=== PATIENT | female | born 1980 | race Caucasian/White ===

== ENCOUNTER 2022-05-13 07:27 | Outpatient (REF) | payer BC, SELFPAY | END 2022-05-13 07:28 | disposition home or self-care (01) | LOC: HO.HOSX 07:27 | PROVIDERS: Visit Provider Physician Assistant | DX: Z13.89 Encounter for screening for other disorder (principal) ==

== ENCOUNTER 2022-05-19 12:24 | Outpatient (REF) | payer BC, SELFPAY ==
--- NOTE | ~2022-05-19 | XR_ITS ---
EXAMINATION: XR wrist LT w scaphoid CLINICAL INFORMATION: Reason for Exam M25.532 - Pain in left wrist COMPARISON: None. TECHNIQUE: 4 views left wrist FINDINGS: No fracture or dislocation. Joint spaces are maintained. Scapholunate interval is preserved. Pronator fat pad is intact. No osteophytes or erosions. No chondrocalcinosis. XR/XR wrist LT w scaphoid IMPRESSION: No acute osseous injury.
== END 2022-05-19 12:25 | disposition home or self-care (01) ==
LOC: HO.HOSX 12:24
PROVIDERS: Visit Provider Physician Assistant
DX: M25.532 Pain in left wrist (principal)
CPT/HCPCS: 73110

== ENCOUNTER 2023-05-29 08:01 | Outpatient (AMB) | payer BC, SELFPAY ==
--- NOTE | 2023-05-29 08:02 | AM.OFFWIN_ITS ---
Intake Vital Signs 05/29/23 08:08 BP 112/78 Blood Pressure Location Rt brachial Position Sitting Pulse 100 Pulse Source Pulse Oximeter Temp 98.4 F Temp Source Temporal Artery Scan Pulse Oximetry (%) 97 Oxygen Delivery Method Room Air Intake Visit Reasons: EP Throat, ears [phone] Intake Note: patient here for ear pain, congestion, sore throat for about a week. Patient Tobacco Use Status: Never used Tobacco Allergies No Known Allergies Allergy (Unverified 05/29/23 08:03) Do you need a note to return to daycare/school/sports/work: No HPI HPI Comments History of Present Illness Details This is a 42-year-old female who is otherwise healthy who presents to the office today for sick visit. Patient reports symptoms of left ear pain, sinus pain/pressure/congestion, rhinorrhea with yellow green discharge, and sore throat. She denies any fevers or chills. She denies any chest pain or shortness of breath. She denies any known sick contacts. [facility] Social History (Updated 05/19/22 @ 12:37 by JOELLEN Crawford) Alcohol intake: current Alcohol intake frequency: holidays/special occasions only Patient Tobacco Use Status: Never used Tobacco Current occupational status: employed Current occupation: Teacher, left handed Review of Systems Const All systems reviewed & are unremarkable except as noted in HPI and below Reports as per HPI, Denies chills and Denies fever(s) Eyes Reports no additional complaints ENT Reports nasal congestion, Reports nasal discharge, Reports odynophagia and Reports sore throat Card Reports as per HPI and Reports no additional complaints Resp Reports as per HPI, Reports no additional complaints and Reports cough (dry) GI Reports no additional complaints, Reports change in bowel habits and Reports eleanor nophagia Reports no additional complaints Musc Reports no additional complaints Skin/Breast Reports system reviewed and no additional complaints, except as documented Neuro Reports no additional complaints Psych Reports no additional complaints Endo Reports no additional complaints Timbo/Lymph Reports no additional complaints Aller/Immun Reports no additional complaints Physical Exam Vital Signs: Last Vital Signs Temp 98.4 F 05/29/23 08:08 Pulse 100 05/29/23 08:08 BP 112/78 05/29/23 08:08 Pulse Ox 97 05/29/23 08:08 Oxygen Delivery Method Room Air 05/29/23 08:08 Const General: cooperative, healthy appearing and no acute distress Orientation/consciousness: patient oriented x3 HEENT Head: Yes normal to inspection Ears: TM abnormal bulging and erythematous General nose exam: Normal external nose present Face and sinus: Yes sinuses nontender Throat: Yes posterior oropharynx abnormal (erythema, no exudates) Neck Lymphatic: no lymphadenopathy noted Resp Effort & Inspection: normal respiratory effort Auscultation: clear to auscultation bilaterally Cardio Rate: regular rate Rhythm: regular rhythm Heart sounds: no gallops, no murmurs and no rubs Skin General skin exam: no rashes or lesions noted Neuro General: patient oriented x3 Cranial nerves: Yes CN's II-XII intact bilaterally Results AMB Rapid Strep AMB Rapid Strep Negative Last Edit by Nirmala Cisneros CMA on 05/29/23 08:15 Assessment & Plan Assessment & Plan (1) Acute rhinosinusitis: Code(s): J01.90 - Acute sinusitis, unspecified (2) Otitis media: Code(s): H66.90 - Otitis media, unspecified, unspecified ear Plan This is a 42-year-old female presenting with signs symptoms consistent acute rhinosinusitis and acute otitis media left ear. Recommended symptomatic management including rest, increased fluids, advil/tylenol for pain/fever, and over the counter throat lozenges/decongestants. Prescription sent for a Z-Rd. Patient advised to follow up here or go to the emergency room for worsening/persistent symptoms. Patient verbalizes her understanding and she is agreeable with the plan. Orders: Orders AMB Rapid Strep Screen Today Z13.9 - Encounter for screening, unspecified Medications: New azithromycin For 250 mg dose pack: take 500 mg today (day 1), then 250 mg for 4 days (days 2-5) PO 6 tabs 0RF Coding Level of Care Code Est Pt Level 3 (63920) Diagnoses Acute rhinosinusitis J01.90 Otitis media H66.90
[2023-05-29 08:08] VITALS: BP 112/78; PULSE 100; TEMP 36.9; O2SAT 97
== END 2023-05-29 08:21 | disposition home or self-care (01) ==
PROVIDERS: PCP Nurse Practitioner Family; Visit Provider Physician Assistant Medical
DX: J01.90 Acute sinusitis, unspecified (principal); H66.90 Otitis media, unspecified, unspecified ear; Z13.9 Encounter for screening, unspecified
CPT/HCPCS: 87880; 99213

== ENCOUNTER 2023-07-27 14:27 | Outpatient (AMB) | payer BC, SELFPAY ==
--- NOTE | 2023-07-27 14:33 | MHC.PC.OV ---
Vital Signs 07/27/23 14:34 Height 5 ft 6 in Weight 220 lb 2 oz BMI 35.5 BP 118/72 Blood Pressure Location Rt brachial Position Sitting Pulse 77 Pulse Source Pulse Oximeter Pulse Oximetry (%) 100 Oxygen Delivery Method Room Air Intake Visit Reasons: Re establish care-Requesting physical Allergies No Known Allergies Allergy (Unverified 07/27/23 14:50) Medication List - Last Reconciled 07/27/23 by OPHELIA Martínez No Known Home Meds Tobacco use date assessed: 07/27/23 Dental Screening Dental Screen Date: 07/27/23 Did you have a dental visit in the last 12 months?: Yes Did you have a dental problem in the last 6 months where you did not have access to dental care?: No Was dental information given to patient?: Patient has dentist HPI Re establish care-Requesting physical HPI Details Pt is here for a PE (re-establish care). Will order labs. Pt does not have a roll tester, will refer. Due for mammo, will order. Pt is interested in trying medication for weight loss. has tried aerobic activity and diet, which did not work. Will send wegovy 0.25mg. [facility] Social History Housing: House Alcohol intake: current Alcohol intake frequency: holidays/special occasions only Patient Tobacco Use Status: Never used Tobacco e-Cigarette/Vaping Use: Never Used Second Hand Smoke Exposure: No service: No Current occupational status: employed Current occupation: Teacher, left handed Current occupational exposures/hazards: No Cognitive needs: No Hearing needs: No Vision needs: No Questionnaire PHQ-9 Over the last 2 weeks, how often have you been bothered by any of the following problems? 1. Little interest or pleasure in doing things: not at all 2. Feeling down, depressed, or hopeless: not at all 3. Trouble falling or staying asleep, or sleeping too much: not at all 4. Feeling tired or having little energy: not at all 5. Poor appetite or overeating: several days 6. Feeling bad about yourself - or that you are a failure or have let yourself or your family down: not at all 7. Trouble concentrating on things, such as reading the newspaper or watching television: several days 8. Moving or speaking so slowly that other people could have noticed. Or the opposite - being so fidgety or restless that you have been moving around a lot more than usual: not at all 9. Thoughts that you would be better off or of hurting yourself in some way: not at all Total score: 2 Depression Screening Interpretation: Negative 33875 - PHQ-9 Billing: Yes Source: Developed by Drs. Bennie Bar, Mitzi Romero, Artis Howell and colleagues, with an educational glo from [employer]. Thrive Questionnaire Date Thrive assessed: 07/27/23 I am a: Patient What is your living situation today?: I have a steady place to live Within the past 12 months, did the food you bought not last and you didn't have the money to get more?: Never true Within the past 12 months, did you worry whether your food would run out before you got money to buy more?: Never true Do you have trouble paying for medicines?: No Do you have trouble getting transportation to medical appointments?: No Do you have trouble paying your heating and electricity bill?: No Do you have trouble taking care of your child, family member or friend?: No Do you have trouble with day-to-day activities such as bathing, preparing meals, shopping, managing finances, etc.?: No Are you currently unemployed and looking for a job?: No Are you interested in more education?: No AUDIT C Alcohol Use Questionnaire (AUDIT-C) 1. How often do you have a drink containing alcohol?: 2-4 times a month 2. How many drinks containing alcohol do you have on a typical day when you are drinking?: 1 or 2 3. How often do you have six or more drinks on one occasion?: Less than monthly Total Score: 3 ANGIE-7 AMB Questionnaire ANGIE-7 Date ANGIE - 7 assessed: 07/27/23 Feeling nervous, anxious, or on edge: 0 = Not at all Not being able to stop or control worryin = Not at all Worrying too much about different things: 0 = Not at all Trouble relaxin = Not at all Being so restless that it is hard to sit still: 0 = Not at all Becoming easily annoyed or irritable: 0 = Not at all Feeling afraid as if something awful might happen: 0 = Not at all Total ANGIE-7 score (0-4 normal; 5-9 mild; 10-14 moderate; 15-21 severe): 0 Source: Developed by Drs. Bennie Bar, Mitzi Romero, Artis Howell and colleagues, with an educational glo from [employer]. Review of Systems Const Denies chills and Denies fever(s) Eyes Denies blurry vision ENT Denies vertigo, Denies dizziness and Denies sore throat Card Denies chest pain at rest, Denies chest pain with activity, Denies diaphoresis, Denies dyspnea and Denies dyspnea on exertion Resp Denies cough, Denies dyspnea, Denies dyspnea on exertion and Denies wheezing GI Denies abdominal pain, Denies melena, Denies hematochezia, Denies constipation, Denies diarrhea and Denies loose stools Denies hematuria Musc Denies numbness and Denies tingling Skin/Breast Denies lesions Neuro Denies vertigo, Denies dizziness, Denies numbness and Denies tingling Psych Denies anxiety, Denies depression, Denies homicidal ideation, Denies suicidal ideation and Denies other (substance abuse) Aller/Immun Denies wheezing Physical exam (Primary Care) Vital Signs: Last Vital Signs Pulse 77 07/27/23 14:34 BP 118/72 07/27/23 14:34 Pulse Ox 100 07/27/23 14:34 Oxygen Delivery Method Room Air 07/27/23 14:34 BMI result Body Mass Index 35.5 Tobacco/Smoking Status: Tobacco use Status Tobacco use date assessed 07/27/23 07/27/23 14:39 Patient Tobacco Use Status Never used Tobacco 07/27/23 14:39 e-Cigarette/Vaping Use Never Used 07/27/23 14:39 PHQ-9: PHQ-9 Score PHQ-9: Total score 2 07/27/23 15:13 Depression Screening Interpretation: Negative Thrive Assessment: Date of Thrive Assessment Date Thrive assessed 07/27/23 07/27/23 15:13 Const General: cooperative Nutritional Appearance: obese Orientation/consciousness: patient oriented x3 HENMT Head: Yes normal to inspection, Yes normocephalic and Yes atraumatic Ears: TM's normal bilaterally Eyes General: appearance normal, both eyes and all related structures Alignment and Position: alignment normal and position normal Neck Neck: Yes normal visual inspection and Yes no lymphadenopathy Thyroid: Thyroid normal Resp Effort & Inspection: normal respiratory effort Auscultation: clear to auscultation bilaterally Cardio Rate: regular rate Rhythm: regular rhythm Heart sounds: S1 normal heart sound present, S2 normal heart sound present and no murmurs GI Palpation (GI): Soft to palpation and nontender Auscultation: normal bowel sounds Skin Rashes: no rashes Neuro General: patient oriented x3, moves all extremities, no focal motor deficits and deep tendon reflexes 2+ bilaterally Romberg Test: Negative Psych Appearance: grossly normal Mental Status: mental status grossly normal Speech and movement: Normal speech and movement present Affect: normal affect Attitude: cooperative Thought process: Normal thought process present Thought content: Normal thought content present Insight: Good insight present (Psych) Judgement: Good judgement present (Psych) Assessment and Plan Assessment & Plan (1) Physical exam: Code(s): Z00.00 - Encounter for general adult medical examination without abnormal findings Plan: Labs ordered (2) Screening for cervical cancer: Code(s): Z12.4 - Encounter for screening for malignant neoplasm of cervix Plan: Referred to roll tester (3) Enlarged thyroid: Code(s): E04.9 - Nontoxic goiter, unspecified Plan: US ordered (4) Obesity: Code(s): E66.9 - Obesity, unspecified Plan The patient agreed to the use of a medical safety director for this encounter. Scribed for OPHELIA Ambrocio by Ermelinda Montoya medical safety director, on 07/27/2023 at 14:40 EST. Orders: Orders Complete Blood Count Auto Diff Today Z00.00 - Encounter for general adult medical examination without abnormal findings TSH reflex Free T4 Today Z00.00 - Encounter for general adult medical examination without abnormal findings US thyroid Today E04.9 - Nontoxic goiter, unspecified Comprehensive [place]. Panel Fast Today Z00.00 - Encounter for general adult medical examination without abnormal findings Lipid Panel Today Z00.00 - Encounter for general adult medical examination without abnormal findings UA CC w/rflx Micro + Cult Today Z00.00 - Encounter for general adult medical examination without abnormal findings MM screening mammo BI Today Z12.31 - Encounter for screening mammogram for malignant neoplasm of breast Referrals RUBBER GASKET INSPECTOR TRIMMER Referral Z12.4 - Encounter for screening for malignant neoplasm of cervix Medications: New semaglutide (weight loss) (Wegovy) administer weeks 1 through 4 of therapy 0.25 mg (0.5 mL) subcut QWEEK 2 mL 2RF Coding Level of Care Code New Pt Prev Care 40-64y(63780) Diagnoses Physical exam Z00.00 Screening for cervical cancer Z12.4 Enlarged thyroid E04.9 Obesity E66.9
[2023-07-27 14:34] VITALS: BP 118/72; PULSE 77; O2SAT 100; BMI 35.5
== END 2023-07-27 15:15 | disposition home or self-care (01) ==
PROVIDERS: Visit Provider Nurse Practitioner Family
DX: Z00.00 Encounter for general adult medical examination without abnormal findings (principal); E04.9 Nontoxic goiter, unspecified; E66.9 Obesity, unspecified; Z68.35 Body mass index [BMI] 35.0-35.9, adult
CPT/HCPCS: 99386

== ENCOUNTER 2023-08-25 15:31 | Outpatient (REF) | payer BC, SELFPAY ==
--- NOTE | ~2023-08-25 | US_ITS ---
EXAMINATION: US THYROID CLINICAL INFORMATION: Goiter. COMPARISON: None available. TECHNIQUE: Linear transducer grayscale and color Doppler examination with attention to the region of the thyroid. FINDINGS: SIZE: Measurements of the thyroid lobes and nodules are given in sagittal, anteroposterior and transverse dimensions respectively. Right Thyroid Lobe: 5.4 x 1.5 x 1.8 cm, volume 7.83 mL. Parenchyma: The gland echotexture is homogeneous. Thyroid vascularity is normal. Left Thyroid Lobe: 5.2 x 1.4 x 1.5 cm, volume 5.84 mL. Parenchyma: The gland echotexture is homogeneous. Thyroid vascularity is normal. Isthmus: 0.3 cm in maximum AP dimension. Estimated total number of nodules greater than or equal to 1 cm: 0. Neon Technician nodules are described as follows: NODES: No lymphadenopathy is seen in the tissue surrounding the thyroid gland. US/US thyroid IMPRESSION: No suspicious thyroid nodules. ACR TI-RADS RECOMMENDATION REFERENCE: Ultrasound-guided fine-needle aspiration, followup ultrasound, no further followup. * TR1 (0 point) and TR2 (2 points): No FNA or followup. * TR3 (3 points): FNA if more than or equal to 2.5 cm in maximum dimension, followup ultrasound in 1, 3 and 5 years if 1.5 to 2.4 cm in maximum dimension. * TR4 (4-6 points): FNA if more than or equal to 1.5 cm in maximum dimension, followup ultrasound in 1, 2, 3 and 5 years if 1 to 1.4 cm in maximum dimension. * TR5 (more than or equal to 7 points): FNA if more than or equal to 1 cm in maximum dimension, followup ultrasound every year for 5 years if 0.5 to 0.9 cm in maximum dimension. * TR3, TR4 or TR5 nodules that are below the size threshold for followup receive no followup.
== END 2023-08-25 15:32 | disposition home or self-care (01) ==
LOC: HO.HMGCX 15:31
PROVIDERS: PCP Nurse Practitioner Family; Visit Provider Nurse Practitioner Family
DX: E04.9 Nontoxic goiter, unspecified (principal)
CPT/HCPCS: 76536

== ENCOUNTER 2024-01-25 09:58 | Outpatient (AMB) | payer BC, SELFPAY ==
[2024-01-25 10:05] VITALS: BP 126/74; PULSE 83; O2SAT 98; BMI 32.9
--- NOTE | 2024-01-25 10:05 | A.OFFPC_ITS ---
Vital Signs 01/25/24 10:05 Height 5 ft 6 in Weight 204 lb BMI 32.9 BP 126/74 Blood Pressure Location Lt brachial Position Sitting Pulse 83 Pulse Source Pulse Oximeter Pulse Oximetry (%) 98 Oxygen Delivery Method Room Air Intake Visit Reasons: 6 month follow up Intake Note: pt is here for 6 month follow up Broadcast Operations Technician Required: No Accompanied by: Self / Same As Patient Allergies No Known Allergies Allergy (Verified 01/25/24 10:05) Tobacco use date assessed: 01/25/24 Dental Screening Dental Screen Date: 01/25/24 Did you have a dental visit in the last 12 months?: Yes Did you have a dental problem in the last 6 months where you did not have access to dental care?: No Was dental information given to patient?: Patient has dentist HPI 6 month follow up HPI Details obesity: pt is loosing weight, reports not getting the wegovy, not available. #2 pt reports that she has the urge to urinate just after voiding. She further describes stress incont, describing leaking after sneezing, going up stairs, coughing. Pt had 2 vaginal deliveries. Will refer to urology. encouraged pt to get her labs drawn. [facility] Surgical History No pertinent past surgical history Social History Housing: House Alcohol intake: current Alcohol intake frequency: holidays/special occasions only Patient Tobacco Use Status: Never used Tobacco e-Cigarette/Vaping Use: Never Used Second Hand Smoke Exposure: No service: No Current occupational status: employed Current occupation: Teacher, left handed Current occupational exposures/hazards: No Cognitive needs: No Hearing needs: No Vision needs: No Questionnaire PHQ-9 Over the last 2 weeks, how often have you been bothered by any of the following problems? 1. Little interest or pleasure in doing things: not at all 2. Feeling down, depressed, or hopeless: not at all 3. Trouble falling or staying asleep, or sleeping too much: not at all 4. Feeling tired or having little energy: not at all 5. Poor appetite or overeating: not at all 6. Feeling bad about yourself - or that you are a failure or have let yourself or your family down: not at all 7. Trouble concentrating on things, such as reading the newspaper or watching television: not at all 8. Moving or speaking so slowly that other people could have noticed. Or the opposite - being so fidgety or restless that you have been moving around a lot more than usual: not at all 9. Thoughts that you would be better off or of hurting yourself in some way: not at all Total score: 0 Depression Screening Interpretation: Negative Depression Screening Done: Yes 59956 - PHQ-9 Billing: Yes Source: Developed by Drs. Bennie Bar, Mitzi Romero, Artis Howell and colleagues, with an educational glo from [employer]. Thrive Questionnaire Date Thrive assessed: 01/25/24 I am a: Patient What is your living situation today?: I have a steady place to live Within the past 12 months, did the food you bought not last and you didn't have the money to get more?: Never true Within the past 12 months, did you worry whether your food would run out before you got money to buy more?: Never true Do you have trouble paying for medicines?: No Do you have trouble getting transportation to medical appointments?: No Do you have trouble paying your heating and electricity bill?: No Do you have trouble taking care of your child, family member or friend?: No Do you have trouble with day-to-day activities such as bathing, preparing meals, shopping, managing finances, etc.?: No Are you currently unemployed and looking for a job?: No Are you interested in more education?: No Please select the resources that you would like help with: None Currently or been in a relationship where the following occur: no concerns reported THRIVE Score: 0 AUDIT C Alcohol Use Questionnaire (AUDIT-C) 1. How often do you have a drink containing alcohol?: Monthly or less 2. How many drinks containing alcohol do you have on a typical day when you are drinking?: 1 or 2 3. How often do you have six or more drinks on one occasion?: Never Total Score: 1 Score Reviewed/Action Taken: Yes ANGIE-7 AMB Questionnaire ANGIE-7 Date ANGIE - 7 assessed: 01/25/24 Feeling nervous, anxious, or on edge: 1 = Several days Not being able to stop or control worryin = Several days Worrying too much about different things: 1 = Several days Trouble relaxin = Several days Being so restless that it is hard to sit still: 1 = Several days Becoming easily annoyed or irritable: 1 = Several days Feeling afraid as if something awful might happen: 1 = Several days Total ANGIE-7 score (0-4 normal; 5-9 mild; 10-14 moderate; 15-21 severe): 7 Source: Developed by Drs. Bennie Bar, Mitzi Romero, Artis Howell and colleagues, with an educational glo from [employer]. ANGIE-7 Assessment Billing ANGIE-7 Assessment Tool: ANGIE-7 Assessment 27808 Review of Systems Const Reports as per HPI Physical exam (Primary Care) Vital Signs: Last Vital Signs Pulse 83 01/25/24 10:05 BP 126/74 01/25/24 10:05 Pulse Ox 98 01/25/24 10:05 Oxygen Delivery Method Room Air 01/25/24 10:05 BMI result Body Mass Index 32.9 Tobacco/Smoking Status: Tobacco use Status Tobacco use date assessed 01/25/24 01/25/24 10:06 Patient Tobacco Use Status Never used Tobacco 01/25/24 10:06 e-Cigarette/Vaping Use Never Used 01/25/24 10:06 PHQ-9: PHQ-9 Score PHQ-9: Total score 0 01/25/24 10:20 Depression Screening Interpretation: Negative Thrive Assessment: Date of Thrive Assessment Date Thrive assessed 01/25/24 01/25/24 10:11 Currently or been in a relationship where the following occur: no concerns reported Const General: cooperative Nutritional Appearance: obese Orientation/consciousness: patient oriented x3 Resp Effort & Inspection: normal respiratory effort Auscultation: clear to auscultation bilaterally Cardio Rate: regular rate Rhythm: regular rhythm Heart sounds: S1 normal heart sound present and S2 normal heart sound present Neuro General: patient oriented x3 Psych Appearance: grossly normal Mental Status: mental status grossly normal Speech and movement: Normal speech and movement present Affect: normal affect Attitude: cooperative Thought process: Normal thought process present Thought content: Normal thought content present Insight: Good insight present (Psych) Judgement: Good judgement present (Psych) Assessment and Plan Assessment & Plan (1) Obesity: Code(s): E66.9 - Obesity, unspecified Plan: Pt is losing weight (2) Stress incontinence: Code(s): N39.3 - Stress incontinence (female) (male) Plan: Referred to urology, UA and culture ordered Plan The patient agreed to the use of a medical reimbursement specialist for this encounter. Scribed for John Scott [employer]- by Ermelinda Montoya medical reimbursement specialist, on 01/25/2024 at 10:25 EST. Orders: Orders UA CC w/rflx Micro + Cult Today N39.3 - Stress incontinence (female) (male) Urine Culture Today N39.3 - Stress incontinence (female) (male) MM screening mammo BI Today Z12.31 - Encounter for screening mammogram for malignant neoplasm of breast Referrals Urology Referral N39.3 - Stress incontinence (female) (male) Coding Level of Care Code Est Pt Level 3 (49977) Diagnoses Obesity E66.9 Stress incontinence N39.3 Additional Codes ANIGE-7 Assessment Billing - ANGIE-7 Assessment Tool: ANGIE-7 Assessment 44405 ([id number])
== END 2024-01-25 13:18 | disposition home or self-care (01) ==
PROVIDERS: PCP Nurse Practitioner Family; Visit Provider Nurse Practitioner Family
DX: E66.9 Obesity, unspecified (principal); Z68.32 Body mass index [BMI] 32.0-32.9, adult; N39.3 Stress incontinence (female) (male)
CPT/HCPCS: 99213

== ENCOUNTER 2024-01-25 10:41 | Outpatient (REF) | payer BC, SELFPAY ==
[2024-01-25 13:49] LABS: Appearance Urine Clear; Color Urine Yellow; Glucose Urine UA Negative (Negative); Leukocyte Esterase Urine Negative (Negative); Nitrite Urine Negative (Negative); PH 6.5 (5.0-9.0); Specific Gravity - Urine 1.015 (1.005-1.025); UMIC TRIGGER UACC YES; Urine Blood Large (3+) (Negative); Urine Ketones Negative (Negative); Urine Protein Negative (Neg-Trace)
[2024-01-25 13:55] LABS: Bacteria Urine None Seen (None Seen); Hyaline Casts Urine 0-2 /LPF (0-2); RBC Urine >20 /HPF (0-2); Squamous Epithelial Cell Urine 0-2 /HPF (0-2); WBC Urine 0-5 /HPF (0-5)
== END 2024-01-25 10:42 | disposition home or self-care (01) ==
LOC: HO.HMGCLDS 10:41
PROVIDERS: PCP Nurse Practitioner Family; Visit Provider Nurse Practitioner Family
DX: N39.3 Stress incontinence (female) (male) (principal)
CPT/HCPCS: 81001; 87086

== ENCOUNTER 2024-03-14 14:47 | Outpatient (REF) | payer BC, SELFPAY ==
--- NOTE | ~2024-03-14 | MM_ITS ---
EXAMINATION: MM SCREENING DIGITAL BREAST TOMOSYNTHESIS, BILATERAL CLINICAL INFORMATION: Screening. Asymptomatic. COMPARISON: Mammography: This is a baseline study. TECHNIQUE: Digital breast tomosynthesis is performed in both the craniocaudal and mediolateral oblique views along with computer-aided detection (CAD). Synthesized 2D images are generated from the tomosynthesis. FINDINGS: The breasts are heterogeneously dense, which may obscure small masses (ACR BI-RADS breast composition Category c). There are no significant masses, abnormal calcifications, or other abnormalities. MM/MM tomosynthesis screening BI IMPRESSION: No mammographic evidence of malignancy. ASSESSMENT: BI-RADS BI-RADS 1 - Negative RECOMMENDATION: Routine annual mammography screening. 1 year F/U This examination should not preclude the clinical evaluation of a suspicious palpable abnormality. This patient's information was entered into a reminder system with a target due date for their next mammogram.
== END 2024-03-14 14:48 | disposition home or self-care (01) ==
LOC: HO.MAMMO 14:47
PROVIDERS: PCP Nurse Practitioner Family; Visit Provider Nurse Practitioner Family
DX: Z12.31 Encounter for screening mammogram for malignant neoplasm of breast (principal)
CPT/HCPCS: 77063; 77067

== ENCOUNTER → 2024-03-14 15:00 | Outpatient (BNV) | payer BC, SELFPAY | PROVIDERS: PCP Nurse Practitioner Family; Visit Provider Radiology Diagnostic Radiology | DX: Z12.31 Encounter for screening mammogram for malignant neoplasm of breast (principal) | CPT/HCPCS: 77063; 77067 ==

== ENCOUNTER 2024-03-18 15:19 | Outpatient (AMB) | payer BC, SELFPAY ==
--- NOTE | 2024-03-18 15:19 | A.OFFVIS_ITS ---
Intake Visit Reasons: stress incontinence Intake Note: New Patient presents for initial visit for stress incontinence Urology Medications: none Blood Thinner: none Animal Care Giver Required: No Accompanied by: Self / Same As Patient Allergies No Known Allergies Allergy (Verified 03/18/24 16:11) Medication List - Last Reconciled 03/18/24 by OPHELIA Gutierrez No Known Home Meds HPI Comments Details: Martha is a very pleasant 43-year-old female patient of Dr. Scott. She presents to the office today as a new patient for mixed incontinence. In discussion with the patient today she reports noting over the last 2-3 months she has been experiencing on sensed and sensed incontinence. She reports noting urinary leakage with coughing, sneezing, and or when working out. She also reports feeling urine at times trickles out without sense of urgency or with urination. She otherwise denies nocturia, hematuria, dysuria, foul smelling urine, changes to urinary stream, flank pain, fever, and or chills. She does report a history of 2 vaginal births. She reports her son was a small sized baby however her daughter was almost 10 lb. She reports labors were not prolonged. Discussed at length further treatment options for mixed urinary incontinence. Discussed pelvic floor therapy at length. In office urinalysis results reviewed with the patient today. PVR 0 mL. PFSH Surgical History No pertinent past surgical history Social History Housing: House Alcohol intake: current Alcohol intake frequency: holidays/special occasions only Patient Tobacco Use Status: Never used Tobacco e-Cigarette/Vaping Use: Never Used Second Hand Smoke Exposure: No service: No Current occupational status: employed Current occupation: Teacher, left handed Current occupational exposures/hazards: No Cognitive needs: No Hearing needs: No Vision needs: No Review of Systems Const All systems reviewed & are unremarkable except as noted in HPI and below Physical Exam Const General: cooperative, healthy appearing, comfortable, no acute distress, well developed, alert and awake Nutritional Appearance: overweight Orientation/consciousness: patient oriented x3 Limitations: no limitations HEENT Head: Yes normal to inspection, Yes normocephalic and Yes atraumatic Ears: hearing grossly normal bilaterally Eyes General: appearance normal, both eyes and all related structures Neck Neck: Yes normal visual inspection and Yes trachea midline Chest Chest palpation & inspection: normal inspection of the chest Resp Effort & Inspection: normal respiratory effort and able to speak in complete sentences Cardio Rate: regular rate GI Inspection: Yes normal to inspection General: Yes no CVA tenderness Back/Spine/Pelvis Back: no CVA tenderness Skin General skin exam: no rashes or lesions noted Neuro General: patient oriented x3 Extrem General: Yes normal to inspection Psych Appearance: grossly normal and well kempt Mental Status: mental status grossly normal Speech and movement: Normal speech and movement present and Clear speech present Affect: normal affect Attitude: cooperative Thought process: Normal thought process present Thought content: Normal thought content present Insight: Fair insight present (Psych) Judgement: Fair judgement present (Psych) Office Procedures Post Void Residual Post Residual Void Post Void Residual (PVR): 0 [id number] Void Residual by ultrasound Results AMB Urinalysis, Automated UA Leukoctes 0 Roma/uL Last Edit by [facility] on 03/18/24 15:40 UA Nitrite Negative Last Edit by [facility] on 03/18/24 15:40 UA Urobilinogen 0.2 mg/dL Last Edit by [facility] on 03/18/24 15:40 UA Protein 0 mg/dL Last Edit by [facility] on 03/18/24 15:40 UA pH 7.0 Last Edit by [facility] on 03/18/24 15:40 UA Blood 0 All/uL Last Edit by [facility] on 03/18/24 15:40 UA Specific [place] 1.010 Last Edit by [facility] on 03/18/24 15:40 UA Ketone Negative Last Edit by [facility] on 03/18/24 15:40 UA Bilirubin 0 mg/dL Last Edit by [facility] on 03/18/24 15:40 UA Glucose 0 mg/dL Last Edit by [facility] on 03/18/24 15:40 Results Reviewed Results Reviewed: Laboratory Last Values Urine pH (Auto) 7.0 03/18/24 15:25 Specific [place] (Auto) 1.010 03/18/24 15:25 Urine Protein (Auto) 0 mg/dL 03/18/24 15:25 Glucose (UA)(Auto) 0 mg/dL 03/18/24 15:25 Urine Ketones (Auto) Negative 03/18/24 15:25 Urine Blood (Auto) 0 All/uL 03/18/24 15:25 Urine Nitrite (Auto) Negative 03/18/24 15:25 Urine Bilirubin (Auto) 0 mg/dL 03/18/24 15:25 Urine Urobilinogen (Auto) 0.2 mg/dL 03/18/24 15:25 Leukocyte Esterase (Auto) 0 Roma/uL 03/18/24 15:25 Assessment & Plan Assessment & Plan (1) Stress incontinence: Code(s): N39.3 - Stress incontinence (female) (male) Category: Medical Plan In office urinalysis results reviewed with the patient today; as noted above. PVR 0 mL. Will obtain retroperitoneal ultrasound for further assessment evaluation. Discussed at length potential causes for stress incontinence as well as further treatment options. Information provided for pelvic floor exercises Discussed bladder triggers/irritants. Follow-up in 1-3 months with imaging to be completed prior; or sooner with any issues, concerns, and or questions. Orders: Orders AMB Urinalysis Automated 03/18/24 Z13.9 - Encounter for screening, unspecified AMB Post Void Residual by ultrasound 03/18/24 N39.3 - Stress incontinence (female) (male) US retroperitoneal comp 03/18/24 N39.3 - Stress incontinence (female) (male) Patient Instructions: The patient had an opportunity to ask questions regarding the treatment plan. All questions were answered. Physical exam, labs, and imaging were discussed and reviewed in detail. As well as risks, benefits, and discussion of treatment choices. No major barriers to understanding were identified. The patient expressed understanding and agreement with the above treatment plan. The patient was made aware they should contact our office by phone for worsening of their current condition, the appearance of new symptoms, or with any questions or concerns. Compliance is encouraged with any medications and follow up testing that is ordered. It is a privilege to be allowed the opportunity to participate in? your urological care.? Again, if you have any questions or concerns If you have any questions or concerns please do not hesitate to contact me. The office is [phone]. This note is constructed using voice recognition software. While every effort has been made to ensure accuracy film cleaner errors may have been included. Yours sincerely, SHAYY Gutierrez-BC Coding Level of Care Code New Pt Level 3 (88914) Diagnoses Stress incontinence N39.3 CPT Codes Post Residual Void - PVR CPT Code: 22505-Fqho Void Residual by ultrasound ([id number])
== END 2024-03-18 16:09 | disposition home or self-care (01) ==
PROVIDERS: PCP Nurse Practitioner Family; Visit Provider Nurse Practitioner Family
DX: N39.3 Stress incontinence (female) (male) (principal)
CPT/HCPCS: 99203

== ENCOUNTER → 2024-03-18 15:19 | Outpatient (BNVA) | payer BC, SELFPAY | PROVIDERS: PCP Nurse Practitioner Family; Visit Provider Nurse Practitioner Family | DX: N39.3 Stress incontinence (female) (male) (principal) | CPT/HCPCS: 51798; 81003 ==

== ENCOUNTER 2024-09-03 09:15 | Outpatient (REF) | payer BC, SELFPAY ==
[2024-09-03 13:59] LABS: Influenza A PCR NEGATIVE (Negative); Influenza B PCR NEGATIVE (Negative); Resp Syncy Virus RNA Qual PCR NEGATIVE (Negative); SARS COV2 PCR INHOUSE POSITIVE (Negative)
== END 2024-09-03 09:16 | disposition home or self-care (01) ==
LOC: HO.LAB 09:15
PROVIDERS: PCP Nurse Practitioner Family; Visit Provider Physician Assistant Medical
DX: J06.9 Acute upper respiratory infection, unspecified (principal)
CPT/HCPCS: 0241U

== ENCOUNTER 2024-09-03 09:15 | Outpatient (AMB) | payer BC, SELFPAY ==
[2024-09-03 09:43] VITALS: BP 120/82; PULSE 103; TEMP 36.8; O2SAT 98; BMI 35.5
--- NOTE | 2024-09-03 09:43 | AM.OFFWIN_ITS ---
Intake Vital Signs 09/03/24 09:43 Height 5 ft 6 in Weight 220 lb BMI 35.5 BP 120/82 Blood Pressure Location Rt brachial Position Sitting Pulse 103 H Pulse Source Pulse Oximeter Temp 98.3 F Temp Source Oral Pulse Oximetry (%) 98 Oxygen Delivery Method Room Air Intake Visit Reasons: EP ?sinus infection Intake Note: Pt is here today c/o ? sinus infection x1mo. but test positive for COVID-19 yesterday Patient Tobacco Use Status: Never used Tobacco Allergies No Known Allergies Allergy (Verified 11/30/24 16:19) HPI EP ?sinus infection HPI Details Patient is a 44-year-old female who is COVID positive as of yesterday, but who comes to the walk-in clinic as an established patient and complains of having sinus pressure for about a month now. She reports having nasal congestion and postnasal drip at the start of symptoms. She now has chills, and fatigue. No fever, myalgias or malaise, dizziness or vertigo, weakness, nausea vomiting or diarrhea, abdominal pain or pelvic pain, urinary symptoms, chest pain or shortness of breath, or other significant associated symptoms. [facility] Surgical History No pertinent past surgical history Social History Housing: House Alcohol intake: current Alcohol intake frequency: holidays/special occasions only Patient Tobacco Use Status: Never used Tobacco e-Cigarette/Vaping Use: Never Used Second Hand Smoke Exposure: No service: No Current occupational status: employed Current occupation: Teacher, left handed Current occupational exposures/hazards: No Cognitive needs: No Hearing needs: No Vision needs: No Review of Systems Const All systems reviewed & are unremarkable except as noted in HPI and below Physical Exam Vital Signs: Last Vital Signs Temp 98.3 F 09/03/24 09:43 Pulse 103 H 09/03/24 09:43 BP 120/82 09/03/24 09:43 Pulse Ox 98 09/03/24 09:43 Oxygen Delivery Method Room Air 09/03/24 09:43 BMI result Body Mass Index 35.5 Const General: cooperative, healthy appearing, comfortable, no acute distress, alert, awake, Physically active and well groomed; No anxious, diaphoretic, ill appearing, intoxicated appearing, poor hygiene or tired appearing Nutritional Appearance: average body habitus Orientation/consciousness: oriented to person Limitations: no limitations HEENT Head: Yes normal to inspection, Yes normocephalic and Yes atraumatic Ears: hearing grossly normal bilaterally, external ears normal, TM's normal bilaterally and EAC's normal General nose exam: Normal external nose present, Normal septum present, Abnormal mucous membranes and turbinates present, Nasal discharge present and no epistaxis Face and sinus: Yes face symmetric, No crepitus, No ecchymosis, No erythema, No edema, No fluctuance, No maxillary instability, Yes sinus tenderness and No Facial tenderness on exam of face and sinuses Mouth: Normal oral and palatal mucosa present, lip normal and tongue normal Throat: Yes posterior oropharynx normal, Yes abnormal tonsil (mildly erythematous bilaterally), No peritonsillar mass, No postnasal drainage, No uvular edema and No cobblestoning Eyes General: appearance normal, both eyes and all related structures Neck Neck: Yes normal visual inspection, Yes full ROM, Yes no lymphadenopathy, Yes trachea midline, Yes supple and No anterior neck swelling Chest Chest palpation & inspection: normal palpation of entire chest wall Resp Effort & Inspection: normal respiratory effort, able to speak in complete sentences, no audible wheezes, no cough, no grunting, not labored, no nasal flaring, no retractions and symmetric chest movement Auscultation: clear to auscultation bilaterally, no crackles, no rales, no rhonchi, no wheezes, lung sounds not diminished and No rub present Cardio Palpation: normal PMI Rate: regular rate Rhythm: regular rhythm Heart sounds: S1 normal heart sound present and S2 normal heart sound present Skin Other: Good color, warm and dry Neuro General: oriented to person Psych Appearance: grossly normal Mental Status: mental status grossly normal Speech and movement: Normal speech and movement present Affect: normal affect Attitude: cooperative Thought process: Normal thought process present Insight: Good insight present (Psych) Judgement: Good judgement present (Psych) Assessment & Plan Assessment & Plan (1) Sinusitis, acute ethmoidal: Code(s): J01.20 - Acute ethmoidal sinusitis, unspecified Qualifiers: Recurrence: non-recurrent Qualified Code(s): J01.20 - Acute ethmoidal sinusitis, unspecified (2) COVID: Code(s): U07.1 - COVID-19 Plan Patient is a 44-year-old female who is COVID positive as of yesterday, but who complains of having sinus pressure for about a month now. She reports having nasal congestion and postnasal drip at the start of symptoms. She now has chills, and fatigue. We discussed that likely she had an upper respiratory infection that started her symptoms, even though she currently is exacerbated by COVID, I did agree to write her for an antibiotic as she has had sinus pressure and nasal discharge for a few weeks now. Pending flu COVID and RSV results via PCR to rule out associated infections. She will follow up if symptoms persist or worsen or go to the emergency department with worrisome symptoms. Orders: Orders SARS-CoV2/FLU/RSV 09/03/24 J06.9 - Acute upper respiratory infection, unspecified Medications: New amoxicillin-pot clavulanate 875-125 mg 1 tab PO BID 10 tabs 0RF Coding Level of Care Code Est Pt Level 4 (91136) Diagnoses Acute non-recurrent ethmoidal sinusitis J01.20 Recurrence: non-recurrent COVID U07.1
== END 2024-09-03 10:59 | disposition home or self-care (01) ==
PROVIDERS: PCP Nurse Practitioner Family; Visit Provider Physician Assistant Medical
DX: J01.20 Acute ethmoidal sinusitis, unspecified (principal); U07.1 COVID-19

== ENCOUNTER 2024-11-30 16:09 | Outpatient (AMB) | payer BC, SELFPAY ==
--- NOTE | 2024-11-30 16:18 | MHC.OFFWIV ---
Intake Vital Signs 11/30/24 16:19 Weight 228 lb BP 120/80 Blood Pressure Location Rt brachial Position Sitting Pulse 73 Pulse Source Pulse Oximeter Temp 98.3 F Temp Source Oral Pulse Oximetry (%) 98 Oxygen Delivery Method Room Air Intake Visit Reasons: PE Bit by spider, infected? Intake Note: Patient here for bite on right ankle that may be infected, she noticed it yesterday. Patient Tobacco Use Status: Never used Tobacco Allergies No Known Allergies Allergy (Verified 11/30/24 16:19) Do you need a note to return to daycare/school/sports/work: No HPI HPI Comments History of Present Illness Details History of Present Illness - The patient is a 44-year-old female presenting with a potential infection following an insect bite on the right ankle. - She states the bite occurred yesterday morning with progressive redness, though current major symptoms such as pain or increased warmth are absent. - She has not identified the insect responsible. - There is significant erythema encircling the ankle and extending with a separate region involved dorsally. 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 Physical Exam General: Cooperative, healthy appearing, comfortable, no acute distress and well developed Orientation: Patient oriented x3 Limitations: No limitations Head: Normal to inspection Ears: Hearing grossly normal bilaterally Nose: Normal external nose present Face and sinus: Normal facial exam Eyes: Appearance normal, both eyes and all related structures Neck: Normal visual inspection and Yes full ROM Respiratory: Normal respiratory effort and able to speak in complete sentences. Skin: No rashes or lesions noted Neuro: Patient oriented x3 Extremities: Normal to inspection, except for a localized reaction on the right ankle, which is slightly raised, erythematous, not warm and wraps around right ankle from lateral-anterior aspect to posterior with 2 small similar spots on medial side. [facility] Surgical History No pertinent past surgical history Social History Housing: House Alcohol intake: current Alcohol intake frequency: holidays/special occasions only Patient Tobacco Use Status: Never used Tobacco e-Cigarette/Vaping Use: Never Used Second Hand Smoke Exposure: No service: No Current occupational status: employed Current occupation: Teacher, left handed Current occupational exposures/hazards: No Cognitive needs: No Hearing needs: No Vision needs: No Review of Systems Const All systems reviewed & are unremarkable except as noted in HPI and below Physical Exam Vital Signs: Last Vital Signs Temp 98.3 F 11/30/24 16:19 Pulse 73 11/30/24 16:19 BP 120/80 11/30/24 16:19 Pulse Ox 98 11/30/24 16:19 Oxygen Delivery Method Room Air 11/30/24 16:19 Assessment & Plan Assessment & Plan (1) Cellulitis: Code(s): L03.90 - Cellulitis, unspecified Qualifiers: Site of cellulitis: extremity Site of cellulitis of extremity: lower extremity Laterality: right Qualified Code(s): L03.115 - Cellulitis of right lower limb Plan: The patient should monitor the insect bite on her right ankle until Thursday morning, 72 hours from the bite. If the reaction progresses or symptoms intensify beyond expected levels, she will begin a course of doxycycline to address a potential cellulitis, considering her history of similar episodes and MRSA infections. A prescription has been prepared in anticipation, but she is advised to delay filling it unless necessary. This plan takes into account her history of recurrent MRSA cellulitis and professional exposure to minor injuries requiring similar treatment. Patient was informed and verbally consented to the use of an ambient scribe for clinic note documentation during this visit. Medications: New doxycycline hyclate 100 mg PO BID 14 tabs 0RF Coding Level of Care Code Est Pt Level 3 (16710) Diagnoses Cellulitis of right lower extremity L03.115 Site of cellulitis: extremity Site of cellulitis of extremity: lower extremity Laterality: right
[2024-11-30 16:19] VITALS: BP 120/80; PULSE 73; TEMP 36.8; O2SAT 98
== END 2024-11-30 16:40 | disposition home or self-care (01) ==
PROVIDERS: PCP Nurse Practitioner Family; Visit Provider Physician Assistant
DX: L03.115 Cellulitis of right lower limb (principal)

== ENCOUNTER → 2024-11-30 16:09 | Outpatient (BNVA) | payer BC, SELFPAY | PROVIDERS: PCP Nurse Practitioner Family; Visit Provider Physician Assistant ==

== ENCOUNTER 2025-03-20 13:30 | Outpatient (AMB) | payer BC, SELFPAY ==
--- NOTE | 2025-03-20 13:42 | AM.OFFWIN_ITS ---
Intake Vital Signs 03/20/25 13:45 Weight 226 lb BP 128/100 H Blood Pressure Location Rt brachial Position Sitting Pulse 92 Pulse Source Pulse Oximeter Pulse Oximetry (%) 98 Oxygen Delivery Method Room Air Intake Visit Reasons: PE High BP 126/108, headache Intake Note: Patient here for elevated BP for about 2 weeks, pounding headaches, sees floaters and slight dizziness. Patient Tobacco Use Status: Never used Tobacco Allergies No Known Allergies Allergy (Verified 03/20/25 13:44) Do you need a note to return to daycare/school/sports/work: No HPI HPI Comments History of Present Illness Details 44 y/o Female patient who presents to [facility] walk in clinic with c/o elevated Diastolic BP readings in the past 2 weeks. Reports noticing Diastolic numbers ranging from 85-99 with normal Systolic numbers. Reports checking BP randomly during the day time. 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 Today while at work she checked BP and it was 120/108 associated with Occipital headache. Reports that headache started this morning when she work-up Denies nausea, vomiting, fevers or chills. [facility] Medical History (Updated 03/20/25 @ 15:59 by Marysol Rivas NP) Generalized headaches Diastolic blood pressure 90 mm Hg or higher Surgical History No pertinent past surgical history Social History Housing: House Alcohol intake: current Alcohol intake frequency: holidays/special occasions only Patient Tobacco Use Status: Never used Tobacco e-Cigarette/Vaping Use: Never Used Second Hand Smoke Exposure: No service: No Current occupational status: employed Current occupation: Teacher, left handed Current occupational exposures/hazards: No Cognitive needs: No Hearing needs: No Vision needs: No Review of Systems Const All systems reviewed & are unremarkable except as noted in HPI and below Physical Exam Vital Signs: Last Vital Signs Pulse 92 03/20/25 13:45 BP 128/100 H 03/20/25 13:45 Pulse Ox 98 03/20/25 13:45 Oxygen Delivery Method Room Air 03/20/25 13:45 Const General: no acute distress Nutritional Appearance: obese Orientation/consciousness: patient oriented x3 HEENT Head: Yes normocephalic, Yes atraumatic and Yes occipital foramen tenderness Resp Effort & Inspection: normal respiratory effort and able to speak in complete sentences Auscultation: clear to auscultation bilaterally, no crackles, no rales, no rhonchi and no wheezes Cardio Rhythm: regular rhythm Heart sounds: S1 normal heart sound present and S2 normal heart sound present Neuro General: patient oriented x3, gait normal and moves all extremities Psych Speech and movement: Normal speech and movement present Office Meds acetaminophen 325 mg tablet Performing Provider: Marysol Rivas NP [place] [facility] Administered by: Marysol Rivas NP on 03/20/25 16:00 Dose Route Admin Location Dispensed Lot Number Expiration Date [facility] [employer] 325 mg PO 2 tab Assessment & Plan Assessment & Plan (1) Diastolic blood pressure 90 mm Hg or higher: Code(s): R03.0 - Elevated blood-pressure reading, without diagnosis of hypertension Plan: Advised to monitor BPs at home daily for the next 7 days and Keep Log. Advised to send a Portal Message with the readings for review. Lifestyle changes; weight loss, less stress, exercise and Good Sleep. (2) Generalized headaches: Code(s): R51.9 - Headache, unspecified Plan: Advised to monitor BPs at home daily for the next 7 days and Keep Log. Advised to send a Portal Message with the readings for review. Lifestyle changes; weight loss, less stress, exercise and Good Sleep Orders: Orders AMB Acetaminophen Adult Dose Today R51.9 - Headache, unspecified Coding Level of Care Code Est Pt Level 4 (57993) Diagnoses Diastolic blood pressure 90 mm Hg or higher R03.0 Generalized headaches R51.9 Time Spent (min) 20
[2025-03-20 13:45] VITALS: BP 128/100; PULSE 92; O2SAT 98
== END 2025-03-20 14:34 | disposition home or self-care (01) ==
PROVIDERS: PCP Nurse Practitioner Family; Visit Provider Nurse Practitioner Family
DX: R03.0 Elevated blood-pressure reading, without diagnosis of hypertension (principal); R51.9 Headache, unspecified

== ENCOUNTER → 2025-03-20 13:30 | Outpatient (BNVA) | payer BC, SELFPAY | PROVIDERS: PCP Nurse Practitioner Family; Visit Provider Nurse Practitioner Family | DX: R03.0 Elevated blood-pressure reading, without diagnosis of hypertension (principal); R51.9 Headache, unspecified ==

== ENCOUNTER 2025-03-21 15:00 | Outpatient (REF) | payer BC, SELFPAY | END 2025-03-21 15:01 | disposition home or self-care (01) | LOC: HO.MAMMO 15:00 | PROVIDERS: PCP Nurse Practitioner Family; Visit Provider Nurse Practitioner Family | DX: Z12.31 Encounter for screening mammogram for malignant neoplasm of breast (principal) | CPT/HCPCS: 77063; 77067 ==

== ENCOUNTER → 2025-03-21 15:00 | Outpatient (BNV) | payer BC, SELFPAY | PROVIDERS: PCP Nurse Practitioner Family; Visit Provider Internal Medicine | DX: Z12.31 Encounter for screening mammogram for malignant neoplasm of breast (principal) | CPT/HCPCS: 77063; 77067 ==

== ENCOUNTER 2025-10-30 15:43 | Outpatient (AMB) | payer BC, SELFPAY ==
[2025-10-30 16:17] VITALS: BP 120/90; PULSE 90; TEMP 36.9; O2SAT 99; BMI 35.5
--- NOTE | 2025-10-30 16:17 | AM.OFFWIN_ITS ---
Intake Vital Signs 10/30/25 16:17 Height 5 ft 6 in Weight 220 lb 2 oz BMI 35.5 BP 120/90 H Blood Pressure Location Rt brachial Position Sitting Pulse 90 Pulse Source Pulse Oximeter Temp 98.5 F Temp Source Oral Pulse Oximetry (%) 99 Oxygen Delivery Method Room Air Intake Visit Reasons: EP Possible sinus infection Intake Note: pt presents with sinus congestion, pain, headache, post nasal drip, bilateral ear pressure, teeth soreness x8 days- otc afrin and flonase of no help Patient Tobacco Use Status: Never used Tobacco Allergies No Known Allergies Allergy (Verified 10/30/25 16:26) Do you need a note to return to daycare/school/sports/work: No HPI HPI Comments History of Present Illness Details History of Present Illness - The patient is a 45-year-old female pr esenting with symptoms of a sinus infection. - Her symptoms began on the and she reports a history of recurrent sinus infections. - She reports associated headache, pain in the teeth, ear pain, and facial pressure, but denies any fever. - For self-treatment, the patient has be en using Afrin, Flonase, Tylenol, and saline flushes. - She has no known allergies to any anti biotics - She has had sinus infections in the [facility]. - She denies CP, SOB, abd pain, or n/v/d . - She is a non-smoker. Physical Exam General: Cooperative, healthy appearing, comfortable, no acute distress and well developed Head: Normal to inspection Ears: Hearing grossly normal bilaterally. No tragus or mastoid tenderness noted. Auditory canals clear bilaterally. TM's normal, not bulging. No fluid noted. Nose: Normal external nose present. Moist mucosa. Turbinates normal bilaterally, not boggy. Face and sinus: Tenderness to palpation of the frontal and maxillary sinuses bilaterally. Neck: Normal visual inspection and Yes full ROM. No lymphadenopathy noted. Respiratory: Normal respiratory effort and able to speak in complete sentences. Clear to auscultation bilaterally. No w/r/r noted. Cardiovascular: Regular rate and rhythm. Normal S1 and S2. No m/r/g noted. GI: Normal to inspection. Soft to palpation and nontender, nondistended. No guarding noted. Skin: No rashes or lesions noted [facility] Medical History (Updated 05/12/25 @ 15:59 by Marysol Rivas NP) Generalized headaches Diastolic blood pressure 90 mm Hg or higher Surgical History No pertinent past surgical history Social History Housing: House Alcohol intake: current Alcohol intake frequency: holidays/special occasions only Patient Tobacco Use Status: Never used Tobacco e-Cigarette/Vaping Use: Never Used Second Hand Smoke Exposure: No service: No Current occupational status: employed Current occupation: Teacher, left handed Current occupational exposures/hazards: No Cognitive needs: No Hearing needs: No Vision needs: No Review of Systems Const All systems reviewed & are unremarkable except as noted in HPI and below Physical Exam Vital Signs: Last Vital Signs Temp 98.5 F 10/30/25 16:17 Pulse 90 10/30/25 16:17 BP 120/90 H 10/30/25 16:17 Pulse Ox 99 10/30/25 16:17 Oxygen Delivery Method Room Air 10/30/25 16:17 BMI result Body Mass Index 35.5 Assessment & Plan Assessment & Plan (1) Sinusitis: Code(s): J32.9 - Chronic sinusitis, unspecified Qualifiers: Sinusitis location: frontal Chronicity: acute Recurrence: non- recurrent Qualified Code(s): J01.10 - Acute frontal sinusitis, unspecified Plan Most likely sinusitis vs viral illness vs URI vs allergic rhinitis vs flu Plan - tylenol or motrin as needed - continue with flonase and - augmentin BID for 7 days - prednisone burst for 5 days - will give her a sample of a nasal spray - follow up with PCP Medications: New prednisone 40 mg (2 x 20 mg) PO DAILY 10 tabs 0RF 5 days amoxicillin-pot clavulanate 875-125 mg 1 tab PO Q12H 14 tabs 0RF Coding Level of Care Code Est Pt Level 3 (49999) Diagnoses Acute non-recurrent frontal sinusitis J01.10 Sinusitis location: frontal Chronicity: acute Recurrence: non-recurrent
== END 2025-10-30 16:58 | disposition home or self-care (01) ==
PROVIDERS: PCP Nurse Practitioner Family; Visit Provider Physician Assistant Medical
DX: J01.10 Acute frontal sinusitis, unspecified (principal)